=== PATIENT | female | born 1970 | race Hispanic/Latino ===

== ENCOUNTER 2019-02-02 09:18 | Outpatient (CLI) | payer OTHER ==
--- NOTE | 2019-02-02 10:23 | ULT ---
ULTRASOUND ABDOMEN: HISTORY: Left-sided abdominal pain FINDINGS: The liver, spleen, pancreas, kidneys and visualized portions of the aorta and IVC appear normal. Prom inent left renal pelvis is seen. The patient is post cholecystectomy. The common duct measures 8mm in diameter. No free fluid is seen. IMPRESSION: Status post cholecystectomy.
== END 2019-02-02 09:19 | disposition home or self-care (01) ==
LOC: ULT 09:18 → BICULT 09:19
PROVIDERS: ATTEND Nurse Practitioner Family
DX: R10.9 Unspecified abdominal pain (principal); Z90.49 Acquired absence of other specified parts of digestive tract
CPT/HCPCS: 76700